=== PATIENT | female | born 1980 | race American Indian/Alaskan Native ===

== ENCOUNTER 2017-01-02 00:12 | Emergency (ER) | payer BC ==
[2017-01-02 02:29] LABS: Bacteria,Urine 2+ /HPF (Negative); Bilirubin,Urine NEG (Negative); Blood,Urine MOD (Negative); Ketones,Urine NEG (Negative); Leukocyte Esterase,Urine LG (Negative); Mucus,Urine 3+ /HPF; Nitrite,Urine POS (Negative)
[2017-01-02 02:30] LABS: WBC,Urine > 182.0 /HPF (0.0-6.0)
--- NOTE | 2017-01-02 03:13 | Emergency Department Report ---
ED Female HPI - General Chief complaint: Upper Respiratory Infection Stated complaint: CHILLS/FLU SYMPTOMS Time Seen by Provider: 01/02/17 02:59 Source: patient Mode of arrival: Ambulatory Limitations: No Limitations - History of Present Illness Initial comments: This is a 36-year-old female well-nourished with nontoxic or ill in appearance that presents to the ED with complaint of chills, body aches, intermittent headaches, and left flank pain 3-4 days. Patient stated has been having left flank pain that is described as aching with a level of an 8 out of 10. Patient also complains of dysuria and polyuria. Patient denies any vaginal discharge, chest pain, shortness of breath, fever, stiff neck, headache, abdominal pain, pelvic pain, hematuria, numbness or tingling. During the interview patient denies any headache but stated the headache as intermittent. Patient denies thunderclap headache, stiff neck, nausea vomiting, or blurry vision. Last menstrual cycle 12/21/2016. Patient denies any allergies. Denies Past medical history. MD Complaint: other (left flank pain) -: Gradual, days(s) (4) Radiation: non-radiating Severity: mild Severity scale (0 -10): 8 Quality: aching Consistency: constant Improves with: none Worsens with: none Are you Now?: No Last Menstrual Period: 12/21/16 EDC: 09/27/17 Associated Symptoms: denies other symptoms. denies: vaginal discharge, vaginal bleeding, abdominal pain, nausea/vomiting, fever/chills, headaches, loss of appetite, dysuria, hematuria, rash, seizure, shortness of breath, syncope, weakness - Related Data Sexually active: No Previous Rx's Medication Instructions Recorded Last Taken Type Nitrofurantoin [place]/M-Cryst 100 mg PO Q12HR 7 Days 01/02/17 Unknown Rx [Macrobid CAP] Allergies Allergy/AdvReac Type Severity Reaction Status Date / Time No Known Allergies Allergy Unverified 01/02/17 00:24 ED Review of Systems ROS: Stated complaint: CHILLS/FLU SYMPTOMS Other details as noted in HPI Constitutional: denies: chills, fever Eyes: denies: eye pain, eye discharge, vision change ENT: denies: ear pain, throat pain Respiratory: denies: cough, shortness of breath, wheezing Cardiovascular: denies: chest pain, palpitations Endocrine: no symptoms reported Gastrointestinal: denies: abdominal pain, nausea, diarrhea Genitourinary: denies: urgency, dysuria, discharge Musculoskeletal: denies: back pain, joint swelling, arthralgia Skin: denies: rash, lesions Neurological: denies: headache, weakness, paresthesias Psychiatric: denies: anxiety, depression Hematological/Lymphatic: denies: easy bleeding, easy bruising ED Past Medical Hx - Past Medical History Previous Medical History?: No - Surgical History Additional Surgical History: TUBAL LIGATION - Social History Smoking Status: Never Smoker Substance Use Type: None - Medications Home Medications: Home Medications Medication Instructions Recorded Confirmed Last Taken Type Nitrofurantoin [place]/M-Cryst 100 mg PO Q12HR 7 Days 01/02/17 Unknown Rx [Macrobid CAP] ED Physical Exam - General Limitations: No Limitations General appearance: alert, in no apparent distress - Head Head exam: Present: atraumatic, normocephalic - Eye Eye exam: Present: normal appearance, PERRL, EOMI. Absent: scleral icterus, conjunctival injection, nystagmus, periorbital swelling, periorbital tenderness Pupils: Present: normal accommodation - ENT ENT exam: Present: normal exam, normal orophraynx, mucous membranes moist, TM's normal bilaterally, normal external ear exam - Neck Neck exam: Present: normal inspection, full ROM. Absent: tenderness, meningismus, lymphadenopathy, thyromegaly - Respiratory Respiratory exam: Present: normal lung sounds bilaterally. Absent: respiratory distress, wheezes, rales, rhonchi, stridor, chest wall tenderness, accessory muscle use, decreased breath sounds, prolonged expiratory - Cardiovascular Cardiovascular Exam: Present: regular rate, normal rhythm, normal heart sounds. Absent: bradycardia, tachycardia, irregular rhythm, systolic murmur, diastolic murmur, rubs, gallop - GI/Abdominal GI/Abdominal exam: Present: soft, normal bowel sounds. Absent: distended, tenderness, guarding, rebound, rigid, diminished bowel sounds - Extremities Exam Extremities exam: Present: normal inspection, full ROM, normal capillary refill. Absent: tenderness, pedal edema, joint swelling, calf tenderness - Back Exam Back exam: Present: normal inspection, full ROM. Absent: tenderness, CVA tenderness (R), CVA tenderness (L), muscle spasm, paraspinal tenderness, vertebral tenderness, rash noted - Neurological Exam Neurological exam: Present: alert, oriented X3, CN II-XII intact, normal gait, reflexes normal - Psychiatric Psychiatric exam: Present: normal affect, normal mood - Skin Skin exam: Present: warm, dry, intact, normal color. Absent: rash ED Course Vital Signs 01/02/17 00:21 Temperature 99.8 F H Pulse Rate 125 H Respiratory 20 Rate O2 Sat by Pulse 97 Oximetry - Reevaluation(s) Reevaluation #1: 01/02/17 03:13 Patient is talking in full sentence with no signs of distress ED Medical Decision Making - Medical Decision Making Ed course: This is a 36-year-old female that presents with UTI 1- patient was examined by myself. Patient received Macrobid 7 days and was instructed to transfer course of antibiotics. 2- patient was also instructed to follow-up with her primary care doctor in 3-5 days or if symptoms worsen or continue return to emergency room as soon as possible. 3- at time time of discharge, the patient does not seem toxic or ill in appearance. No acute signs of distress noted. Patient agrees to discharge treatment plan of care. No further questions noted by the patient. Critical care attestation.: If time is entered above; I have spent that time in minutes in the direct care of this critically ill patient, excluding procedure time. ED Disposition Clinical Impression: UTI (urinary tract infection) Qualifiers: Urinary tract infection type: site unspecified Hematuria presence: with hematuria Qualified Code(s): N39.0 - Urinary tract infection, site not specified ; R31.9 - Hematuria, unspecified Disposition: TO HOME OR SELFCARE Is pt being admited?: No Does the pt Need Aspirin: No Condition: Stable Instructions: Urinary Tract Infection in Women (ED), Nitrofurantoin Combination (By mouth) Additional Instructions: follow-up with your primary care doctor in 3-5 days or if symptoms worsen or continue return to emergency room as soon as possible. Take full course of the antibiotics that was prescribed Prescriptions: Nitrofurantoin [place]/M-Cryst [Macrobid CAP] 100 mg PO Q12HR 7 Days Referrals: CHRISTIE COWAN MD [Primary Care Provider] - 3-5 Days JV JOHNSON JR, MD [Staff Physician] - 3-5 Days [facility] [Outside] - 3-5 Days [facility] [Outside] - 3-5 Days Forms: Work/School Release Form(ED)
[2017-01-02 03:18] VITALS: BP 135/89
== END 2017-01-02 03:44 | disposition home or self-care (01) ==
LOC: ED 00:12
DX: N39.0 Urinary tract infection, site not specified (principal); Z98.51 Tubal ligation status
CPT/HCPCS: 81001; 99283